=== PATIENT | female | born 1955 | race Caucasian/White ===

== ENCOUNTER → 2017-04-22 | Outpatient (CLI) | payer BC ==
[~2017-04-22] MED LIST: CHOL1TAB46 PO; EPP3/2 IM; IBUP-1050 PO; LEVO150T9 PO
--- NOTE | 2017-04-22 16:37 | DIAGNOSTIC IMAGING REPORT ---
CERVICAL SPINE 6 VIEWS HISTORY: Neuropathy R20.0 Numbness COMPARISON: None. FINDINGS: The cervical spine is visualized from C1 through the superior endplate of T1. There is no fracture. No subluxation. Moderate degenerative disc change from C5 through C7. Prevertebral soft tissues and the atlantodens interval are intact. IMPRESSION: Moderate degenerative disc change from C5 through C7. Minimal osteophytic narrowing of the neuroforamina bilaterally Electronically signed by: Kendrick Castañeda M.D. 04/22/2017 4:35 PM Dictated Date/Time: 04/22/2017 4:35 PM
== END | disposition home or self-care (01) ==
LOC: C.RAD1850 16:15
PROVIDERS: ATTEND Internal Medicine
DX: R20.0 Anesthesia of skin (principal)

== ENCOUNTER → 2017-05-08 | Outpatient (CLI) | payer BC ==
--- NOTE | 2017-05-08 16:11 | DIAGNOSTIC IMAGING REPORT ---
ULTRASOUND SOFT TISSUES OF THE BACK CLINICAL HISTORY: Palpable lump. COMPARISON STUDY: No priors. FINDINGS: Real-time, grayscale, and color flow sonography of the soft tissues of the right lower back is performed at the indicated site of palpable concern. This largely blends into the surrounding subcutaneous fat. There is a well-circumscribed slightly hypoechoic soft tissue nodule at this site. This measures 4.0 x 0.7 x 5.8 cm in diameter. No internal flow shown by color imaging. IMPRESSION: There is a well-circumscribed hypoechoic and nonvascular lesion identified at the indicated site of interest. This is pathologically indeterminant but likely represents a small lipoma. Clinical correlation will be required. Electronically signed by: Jimmy Beck M.D. 05/08/2017 4:10 PM Dictated Date/Time: 05/08/2017 4:08 PM
== END | disposition home or self-care (01) ==
LOC: C.ULTR 15:39
PROVIDERS: ATTEND Internal Medicine
DX: R22.9 Localized swelling, mass and lump, unspecified (principal)

== ENCOUNTER → 2017-10-12 | Outpatient (CLI) | payer BC ==
--- NOTE | 2017-10-13 14:26 | MAMMOGRAPHY REPORT ---
BILATERAL DIGITAL SCREENING MAMMOGRAM TOMOSYNTHESIS WITH CAD: 10/12/2017 CLINICAL HISTORY: Routine screening examination. TECHNIQUE: Breast tomosynthesis in addition to standard 2D mammography was performed. Current study was also evaluated with a Computer Aided Detection (CAD) system. COMPARISON: Comparison is made to exams dated: 10/09/2016 mammogram, 09/06/2015 mammogram, 06/28/2014 mammogram, 06/02/2013 mammogram - [facility], 04/27/2009, and 01/07/2001 mammogram - [facility]. BREAST COMPOSITION: The tissue of both breasts is heterogeneously dense, which may obscure small mas ses. FINDINGS: The parenchymal pattern is unchanged. No developing mass, architectural distortion or clust er of suspicious microcalcifications is seen in either breast. IMPRESSION: ACR BI-RADS CATEGORY 2: BENIGN There is no mammographic evidence of malignancy. A 1 year screening mammogram is recommended. The pa tient will receive written notification of the results. Approximately 10% of breast cancers are not detected with mammography. A negative mammographic report should not delay biopsy if a clinically suggestive mass is present. Kae Merrill M.D. ay/:10/12/2017 15:19:28 Turntable Worker: Yadira CASTELLON(Steven)(Linda), [facility] letter sent: Normal 1/2 BI-RADS Code: ACR BI-RADS Category 2: Benign
== END | disposition home or self-care (01) ==
LOC: C.MAMM 09:47
PROVIDERS: ATTEND Internal Medicine
DX: Z12.31 Encounter for screening mammogram for malignant neoplasm of breast (principal)

== ENCOUNTER 2024-07-26 11:03 | Observation (INO) ==
[2024-07-26 11:51] LABS: Basophils # (auto) 0.02 K/uL (0.00-0.20); Basophils % (auto) 0.4 %; Eosinophils # (auto) 0.08 K/uL (0.00-0.50); Eosinophils % (auto) 1.5 %; Hematocrit (blood only) 41.7 % (37.0-47.0); Hemoglobin 14.7 g/dl (12.0-16.0); Immature Granulocytes # (auto) 0.01 K/uL (0.01-0.20); Immature Granulocytes % (auto) 0.2 %; Lymphocytes # (auto) 1.67 K/uL (1.20-3.40); Lymphocytes % (auto) 31.5 %; Mean Corpuscular Hemoglobin 31.3 pg (25.0-34.0); Mean Corpuscular Hgb Conc 35.3 g/dL (32.0-36.0); Mean Corpuscular Volume 88.7 fL (80.0-100.0); Monocytes # (auto) 0.41 K/uL (0.11-0.59); Monocytes % (auto) 7.7 %; Neutrophils # (auto) 3.11 K/uL (1.40-6.50); Neutrophils % (auto) 58.7 %; Platelet Count 260 K/uL (130-400); RDW Coefficient of Variation 11.9 % (11.5-14.5); RDW Standard Deviation 38.5 fL (36.4-46.3)
[2024-07-26] MEDS: SODIUM CHLORIDE 0.9% 1,000 ML IV SCH (11:53)
[2024-07-26 12:13] LABS: Albumin Globulin Ratio 1.7 (0.9-2); Albumin Level 4.8 gm/dl (3.4-5.0); BUN Creatinine Ratio 17.8 (10-20); Bilirubin,Total 0.7 mg/dl (0.2-1.0); Calcium 10.1 mg/dl (8.6-10.3); Creatinine Clr Calc Pharmacy 58.2 ml/min; Est GFR (African American) 76.1 ml/min; Est GFR (Non-African American) 65.7 ml/min; Globulin 2.9 gm/dl (2.5-4.0); Magnesium 2.2 mg/dl (1.7-2.4); Potassium 3.7 mmol/L (3.5-5.1); Total Protein 7.7 gm/dl (6.0-8.3)
[2024-07-26 12:21] LABS: INR 0.9 (0.9-1.1); Partial Thromboplastin Ratio 0.9; Partial Thromboplastin Time 24 Seconds (21-31); Prothrombin Time 10.3 Seconds (9.0-12.0)
--- NOTE | 2024-07-26 12:29 | Emergency Department Note ---
Impression & Plan Headache, Dysarthria ED Provider Note ED Provider Note NAME: VERONIKA GRAMAJO AGE:69 SEX: Female : 1955 ARRIVES VIA: Private vehicle INFORMANT: Patient ED PROVIDER(s): Carey Villalba DO CHIEF COMPLAINT: Headache, trouble finding words HPI: This is a 69-year-old female who presents emergency department due to concern for headache since Thursday and difficulty with word finding that began on Thursday. Patient states headache initially started as frontal and then became more global. She states it was constant, although did improve a little bit on Thursday and yesterday but this morning had returned and was global again. She states her vision is not as crisp but she denies any overt blurred or double vision. She denies any spots or wavy lines. No prior history of migraines. She states he had a similar episode 5 to 6 years ago but does not recall what she was ultimately diagnosed with. She states at that time she did present to the emergency department, did undergo testing and was treated with medication. She denies any prior history of stroke or mini stroke. She states her family noticed the word finding and became more concerned and as it did not improve they decided today she should come in for additional evaluation. She denies any recent fevers, chills, or URI symptoms. She denies any change in medications. She denies any falls, trauma, or head injury. PAST MEDICAL HISTORY:See Below PAST SURGICAL HISTORY:See Below FAMILY HISTORY:See Below SOCIAL HISTORY:See Below HOME MEDICATIONS:See Below ALLERGIES:See Below VITALS:See Below PHYSICAL EXAMINATION: GENERAL: alert, well appearing, well nourished, no distress, non-toxic HEAD: nc/at EYE EXAM: normal conjunctiva, PERRL and EOM's grossly intact OROPHARYNX: no exudate, no erythema, lips, buccal mucosa, and tongue normal and mucous membranes are moist NECK: supple, no nuchal rigidity, no adenopathy, non-tender LUNGS: Clear to auscultation. Normal chest wall mechanics, no w/r/r HEART: no murmurs, S1 normal and S2 normal ABDOMEN: abdomen soft, non-tender, normo-active bowel sounds, no masses, no rebound or guarding. SKIN: no rashes, petechiae, orbruising UPPER EXTREMITIES: upper extremities are grossly normal. FROM, nml pulses b/l. LOWER EXTREMITIES: No pitting edema. FROM, nml pulses b/l. NEURO EXAM: Normal sensorium, cranial nerves II-XII grossly intact, normal speech, very slight facial droop at left mouth which patient states is chronic,nogross weakness of arms, no gross weakness of legs. Gross sensation intact. No ataxia.NIHSS 1 Vital Signs: reviewed and remarkable Differential Diagnosis: CVA/TIA, headache, tension headache, cluster headache, migraine, subarachnoid hemorrhage, meningitis, mass, central venous thrombus, concussion, trauma and epidural/subdural hemorrhage. MEDICAL DECISION MAKING: This is a 69-year-old female who presents emergency ferment due to concern for atypical headache and difficulty with word finding and speech. Labs drawn and sent, IV established, EKG and chest x-ray performed bedside interpreted me and patient monitored on telemetry. Patient's last known well was several days ago so she was not a candidate for TNK. Patient started on gentle IV fluid hydration, given IV Tylenol for pain, and sent for CT/CTA. Patient's labs and imaging reassuring. She did have persistent symptoms although reported feeling improved. Given no prior history of complex migraine or other obvious explanation for her symptoms, we discussed risk factors for CVA/TIA and need for further evaluation. Patient and family bedside verbalized understanding were in agreement with the plan. Case discussed with the hospitalist team. Consultation(s): 1445: Discussed with RUCHI Moss with [place] hospitalist team. ER Treatment Provided: See below Diagnostics Interpreted By Me: -ECG: Normal sinus at 73, normal axis, normal intervals, slight ST depression noted in lead I, II, and V4 through V6 -Cardiac Monitoring: An order was placed for continuous cardiac monitoring. The monitor shows a rate of 78 with normal sinus rhythm. -Laboratory studies: As stated above and show below. -Imaging studies: CT head: no [facility] Triage Nursing Note Reviewed Prior/Outside Records Reviewed Past Med/Surg History Problem List (Updated 07/27/24 @ 10:07 by Gustavo Santamaria MD) Complicated migraine Word finding difficulty Dysarthria (Acute) Headache (Acute) EKG, abnormal Left arm numbness Routine gynecological examination Cervical disc disease Health care maintenance Hypothyroidism, postablative (Acute) Personal history of urinary calculi (Acute) Rectocele (Acute) Spondylosis of cervical region without myelopathy or radiculopathy (Acute) Vitamin D deficiency disease (Acute) Hemorrhoids History of bee sting allergy (Chronic) Medical History (Updated 07/27/24 @ 10:07 by Gustavo Santamaria MD) Numbness of upper extremity Left hip pain Asymptomatic age-related postmenopausal state Abdominal pain SOBOE (shortness of breath on exertion) COVID-19 Bloating Benign neoplasm of thyroid Bee sting Allergic reaction Allergic reaction Surgical History Status post thyroidectomy History of thyroidectomy, total H/O oral surgery History of appendectomy Family History Unknown Breast cancer Heart disease Father Myocardial infarction Daughter Colorectal cancer Denies family history of Ovarian cancer Prostate cancer Social History Smoking Status: Never smoker Second Hand Exposure: No; Do You Dip or Chew Tobacco: No; Hx Alcohol Use: Yes Alcohol type: wine Alcohol Intake Frequency Comment: socially Hx Substance Use: No Preferred Language: Slovak Communication Ability: Effective Visual Impairment: No Limitations Hearing Ability: Normal Hot Die Picker Required: No Beliefs That Will Affect Care: None marital status: Current Living Situation: Spouse current occupational status: employed How many Children do You have: 2 Feels Safe at Home: Yes Childhood Exposure to Second-Hand Smoke: Yes Diet: low carbohydrate, low salt and regular caffeine: Yes Dental Care, Regularly: Yes Physical Activity Frequency: Daily Seatbelt Use: always Sunscreen Use: Yes Assistive Devices: Glasses Allergies Allergies Allergy/AdvReac Type Severity Reaction Status Date / Time bee venom protein (honey bee) Allergy Unknown HIVES, Verified 04/22/24 08:57 "funny feeling in throat Penicillins Allergy Unknown Verified 04/22/24 08:57 Home Meds Home Medications Medication Instructions Recorded Confirmed diclofenac sodium 1 % topical gel 2 gm topical BID PRN lliac crest 08/01/19 07/26/24 bone pain, Left Knee Pain cholecalciferol (vitamin D3) 125 2,000 unit PO DAILY #30 caps 04/26/24 07/26/24 mcg (5,000 unit) capsule Vitamin B 1 tab PO DAILY 07/26/24 07/26/24 valacyclovir 1 gram tablet 2,000 mg PO BID PRN Other 07/26/24 07/26/24 (Valtrex) Previous Rx's Medication Instructions Recorded hydrocortisone 2.5 % topical cream 1 appln IN DAILY PRN hemorrhoids 05/20/19 with perineal applicator #30 grams (Anusol-HC) albuterol sulfate 90 mcg/actuation 1 inh inhalation QID PRN shortness 10/30/21 aerosol inhaler of breath or wheezing #8.5 grams epinephrine 0.3 mg/0.3 mL 0.3 mg (0.3 mL) subcut ONCE PRN 02/05/23 injection, auto-injector anaphylaxis #2 ea Synthroid 175 mcg tablet 175 mcg PO DAILY #90 tabs 04/27/24 (levothyroxine) prednisone 20 mg tablet See Rx Instructions .Route 07/27/24 .COMPLEX #9 tabs Results & Data (ED) Vital Signs Vital Signs - 24 hr 07/26/24 11:18 07/26/24 11:39 07/26/24 12:47 Temperature 36.8 C Temperature Source Temporal Artery Scan Pulse Rate 78 66 Pulse Rate [Apical] 74 Respiratory Rate 20 14 Respiratory Effort / Characteristics Non-Labored Respiratory Depth Normal Blood Pressure 160/96 H Blood Pressure [Left Arm] 168/104 H Blood Pressure Mean 117 Blood Pressure Mean [Left Arm] 125 Pulse Oximetry 97 97 Oxygen Delivery Method Room Air Room Air Sepsis Recent Fever Within 48 Hours No Sepsis New/Unexplained Change in Mental Status No Sepsis Action Taken by Nursing No Action Required 07/26/24 13:00 07/26/24 15:00 Temperature Temperature Source Pulse Rate Pulse Rate [Apical] 61 67 Respiratory Rate 19 18 Respiratory Effort / Characteristics Respiratory Depth Blood Pressure Blood Pressure [Left Arm] 158/101 H 136/83 Blood Pressure Mean Blood Pressure Mean [Left Arm] 120 100 Pulse Oximetry 99 98 Oxygen Delivery Method Room Air Room Air Sepsis Recent Fever Within 48 Hours Sepsis New/Unexplained Change in Mental Status Sepsis Action Taken by Nursing Laboratory Data 07/27/24 05:52 07/27/24 05:52 Lab Results 07/26/24 07/26/24 Range/Units 11:36 13:35 WBC 5.30 (4.8-10.8) K/ul RBC 4.70 (4.20-5.40) M/uL Hgb 14.7 (12.0-16.0) g/dl Hct 41.7 (37.0-47.0) % MCV 88.7 (80.0-100.0) fL MCH 31.3 (25.0-34.0) pg MCHC 35.3 (32.0-36.0) g/dL RDW Std Deviation 38.5 (36.4-46.3) fL RDW Coeff of Ani 11.9 (11.5-14.5) % Plt Count 260 (130-400) K/uL MPV 11.0 (9.4-12.4) fL Immature Gran % (Auto) 0.2 % Neut % (Auto) 58.7 % Lymph % (Auto) 31.5 % [place] % (Auto) 7.7 % Eos % (Auto) 1.5 % Baso % (Auto) 0.4 % Neut # (Auto) 3.11 (1.40-6.50) K/uL Lymph # (Auto) 1.67 (1.20-3.40) K/uL [place] # (Auto) 0.41 (0.11-0.59) K/uL Eos # (Auto) 0.08 (0.00-0.50) K/uL Baso # (Auto) 0.02 (0.00-0.20) K/uL Immature Gran # (Auto) 0.01 (0.01-0.20) K/uL PT 10.3 (9.0-12.0) Seconds INR 0.9 (0.9-1.1) APTT 24 (21-31) Seconds PTT Ratio 0.9 Sodium 142 (136-145) mmol/L Potassium 3.7 (3.5-5.1) mmol/L Chloride 108 H (98-107) mmol/L Carbon Dioxide 28 (21-32) mmol/L Anion Gap 6 (3-11) BUN 16 (6-23) mg/dl Creatinine 0.90 (0.6-1.2) mg/dl Est Cr Clr Drug Dosing 58.2 ml/min Est GFR ( Amer) 76.1 ml/min Est GFR (Non-Af Amer) 65.7 ml/min BUN/Creatinine Ratio 17.8 (10-20) Glucose 124 H (70-99(Fasting)) mg/dl Calcium 10.1 (8.6-10.3) mg/dl Magnesium 2.2 (1.7-2.4) mg/dl Total Bilirubin 0.7 (0.2-1.0) mg/dl AST 40 H (13-39) U/L ALT 22 (7-52) U/L Alkaline Phosphatase 55 (34-104) U/L Troponin I High Sens 12.0 (0-14) pg/ml Total Protein 7.7 (6.0-8.3) gm/dl Albumin 4.8 (3.4-5.0) gm/dl Globulin 2.9 (2.5-4.0) gm/dl Albumin/Globulin Ratio 1.7 (0.9-2) Urine Color Yellow Urine Appearance Clear (Clear) Urine pH 7.5 (4.5-7.5) Ur Specific [place] 1.025 (1.000-1.030) Urine Protein Negative (Negative) Urine Glucose (UA) Negative (Negative) Urine Ketones Negative (Negative) Urine Blood Negative (Negative) Urine Nitrite Negative (Negative) Urine Bilirubin Negative (Negative) Urine Urobilinogen Negative (Negative) Ur Leukocyte Esterase Negative (Negative) Administered Medications Discontinued Medications Acetaminophen (Acetaminophen 325 Mg Tab) 650 mg PO Q6H PRN PRN Reason: pain(1-4),headache,fever Stop: 08/25/24 18:59 Last Admin: 07/27/24 05:56 Dose: 650 mg Documented By: SERG Aspirin (Aspirin Chew 324 Mg) 324 mg PO NOW STA Stop: 07/26/24 15:11 Last Admin: 07/26/24 15:54 Dose: 324 mg Documented By: PARIS Aspirin (Aspirin 81 Mg Ectab) 81 mg PO DAILY [facility] Stop: 08/26/24 08:59 Last Admin: 07/27/24 09:05 Dose: 81 mg Documented By: LAUREN Sodium Chloride (Nss) 1,000 mls @ 125 mls/hr IV .Q8H MARILIA Stop: 08/25/24 11:44 Last Infusion: 07/27/24 15:03 Dose: Infused Documented By: Admin: 07/27/24 07:03 Dose: 125 mls/hr Documented By: Infusion: 07/27/24 06:51 Dose: Infused Documented By: Admin: 07/26/24 22:51 Dose: 125 mls/hr Documented By: Infusion: 07/26/24 19:53 Dose: Infused Documented By: Admin: 07/26/24 11:53 Dose: 125 mls/hr Documented By: PARIS Acetaminophen (Ofirmev) 1,000 mg in 100 mls @ 400 mls/hr IV NOW STA Stop: 07/26/24 14:37 Last Infusion: 07/26/24 15:10 Dose: Infused Documented By: Admin: 07/26/24 14:54 Dose: 400 mls/hr Documented By: PARIS Ioversol (Optiray 320 125ml) 118 ml IV ONCE ONE Stop: 07/26/24 12:47 Last Admin: 07/26/24 12:46 Dose: 118 ml Documented By: ISSA Levothyroxine Sodium (Levothyroxine Sodium 175 Mcg Tablet) 175 mcg PO DAILYBB MARILIA Stop: 08/26/24 06:29 Last Admin: 07/27/24 05:56 Dose: 175 mcg Documented By: SERG Prednisone (Prednisone 20 Mg Tab) 60 mg PO NOW STA Stop: 07/27/24 11:39 Last Admin: 07/27/24 13:21 Dose: 60 mg Documented By: LAUREN Imaging Data Radiologist's Impression: Chest X-Ray 07/26/24 11:39 XR chest 1V portable HISTORY: neuro deficit, acute stroke suspected COMPARISON: Chest 12/26/2011. FINDINGS: No pneumothorax. No pleural effusions. Small left basilar linear densities persist and favor scarring. Otherwise, lungs are clear. The heart is normal in size. Incidental note is made of a small right azygos lobe. No acute fractures. IMPRESSION: No significant change compared to the prior study. No acute process. ACT 112: Negative or not required by law. Electronically signed by: Jude Wyman M.D. 07/26/2024 1:[address] 07/26/24 11:39 CT OF THE HEAD WITHOUT CONTRAST CLINICAL HISTORY: neuro deficit, acute stroke suspected COMPARISON STUDY: Head CT March 17, 2013. TECHNIQUE: Helical axial images of the head were obtained without IV contrast. Automated exposure control was utilized for the study. A dose lowering technique was utilized adhering to the principles of ALARA. FINDINGS: No acute intracranial hemorrhage, midline shift or mass effect is present. The ventricular system is unremarkable. The basal cisterns are patent. No extra-axial collections are present. There are no findings to suggest acute dural sinus thrombosis or acute territorial infarct. No significant calvarial abnormalities are present. Visualized portions of the sinuses and mastoid air cells are clear. IMPRESSION: No acute intracranial findings. ACT 112: Negative or not required by law. Electronically signed by: Filiberto Ovalles M.D. 07/26/2024 12:59 PM Head CTA 07/26/24 11:39 CT angio head w con, CT angio neck with con CLINICAL HISTORY: 69 years-old Female with neuro deficit, acute stroke suspected. Acute stroke like symptoms COMPARISON STUDY: Head CT of same day TECHNIQUE: Following the IV administration of 118 cc of Optiray, CT angiogram of the head and neck was performed from. The images are reviewed in the axial, sagittal, and coronal planes. 3-D MIPS images are created and assessed. IV contrast was administered without complication. All measurements were obtained according to NASCET criteria. A dose lowering technique was utilized adhering to the principles of ALARA. CT DOSE: 1147.78 mGy.cm FINDINGS: CT ANGIOGRAM OF THE HEAD AND NECK: Normal thoracic aorta arch. Patency of the common and internal carotid arteries. The imaged bilateral internal carotid arteries are patent. The bilateral anterior and middle cerebral arteries are also patent. The vertebrobasilar system and posterior cerebral arteries are widely patent. There is no aneurysm, high-grade stenosis, or proximal branch occlusion identified. Dural sinuses appear patent. Azygos lobe and fissure. Lung apices are clear. No pneumothorax. Thyroidectomy. Unremarkable soft tissues. Multilevel degenerative changes of the cervical spine. IMPRESSION: Unremarkable CTA of the head and neck. ACT 112: Negative or not required by law. The above report was generated using voice recognition software. It may contain grammatical, syntax or spelling errors. Electronically signed by: Sarabjit Otero M.D. 07/26/2024 1:41 PM Neck CTA 07/26/24 11:39 CT angio head w con, CT angio neck with con CLINICAL HISTORY: 69 years-old Female with neuro deficit, acute stroke suspected. Acute stroke like symptoms COMPARISON STUDY: Head CT of same day TECHNIQUE: Following the IV administration of 118 cc of Optiray, CT angiogram of the head and neck was performed from. The images are reviewed in the axial, sagittal, and coronal planes. 3-D MIPS images are created and assessed. IV contrast was administered without complication. All measurements were obtained according to NASCET criteria. A dose lowering technique was utilized adhering to the principles of ALARA. CT DOSE: 1147.78 mGy.cm FINDINGS: CT ANGIOGRAM OF THE HEAD AND NECK: Normal thoracic aorta arch. Patency of the common and internal carotid arteries. The imaged bilateral internal carotid arteries are patent. The bilateral anterior and middle cerebral arteries are also patent. The vertebrobasilar system and posterior cerebral arteries are widely patent. There is no aneurysm, high-grade stenosis, or proximal branch occlusion identified. Dural sinuses appear patent. Azygos lobe and fissure. Lung apices are clear. No pneumothorax. Thyroidectomy. Unremarkable soft tissues. Multilevel degenerative changes of the cervical spine. IMPRESSION: Unremarkable CTA of the head and neck. ACT 112: Negative or not required by law. The above report was generated using voice recognition software. It may contain grammatical, syntax or spelling errors. Electronically signed by: Sarabjit Otero M.D. 07/26/2024 1:41 PM Discharge Plan Visit Data Chief Complaint: Headache Stated Complaint: HEADACHE, CONFUSION W/ WORDS ED Provider: Carey Villalba Discharge Problem: Headache, Dysarthria Patient Disposition: Admitted As Inpatient Discharge Instructions Interventions: ED Discharge Assessment Last Done: 07/26/24 16:17
[2024-07-26] MEDS: OPTIRAY 320 125ml IV ONE (12:46)
--- NOTE | 2024-07-26 13:00 | CT Scan Report ---
CT OF THE HEAD WITHOUT CONTRAST CLINICAL HISTORY: neuro deficit, acute stroke suspected COMPARISON STUDY: Head CT March 17, 2013. TECHNIQUE: Helical axial images of the head were obtained without IV contrast. Automated exposure con trol was utilized for the study. A dose lowering technique was utilized adhering to the principles o f ALARA. FINDINGS: No acute intracranial hemorrhage, midline shift or mass effect is present. The ventricular system is unremarkable. The basal cisterns are patent. No extra-axial collections are present. There are no findings to suggest acute dural sinus thrombosis or acute territorial infarct. No significant calvarial abnormalities are present. Visualized portions of the sinuses and mastoid air cells are cata ar. IMPRESSION: No acute intracranial findings. ACT 112: Negative or not required by law. Electronically signed by: Filiberto Ovalles M.D. 07/26/2024 12:59 PM
--- NOTE | 2024-07-26 13:24 | XRay Report ---
XR chest 1V portable HISTORY: neuro deficit, acute stroke suspected COMPARISON: Chest 12/26/2011. FINDINGS: No pneumothorax. No pleural effusions. Small left basilar linear densities persist and favo r scarring. Otherwise, lungs are clear. The heart is normal in size. Incidental note is made of a sma ll right azygos lobe. No acute fractures. IMPRESSION: No significant change compared to the prior study. No acute process. ACT 112: Negative or not required by law. Electronically signed by: Jude Wyman M.D. 07/26/2024 1:23 PM
--- NOTE | 2024-07-26 13:43 | CT Scan Report ---
CT angio head w con, CT angio neck with con CLINICAL HISTORY: 69 years-old Female with neuro deficit, acute stroke suspected. Acute stroke lik e symptoms COMPARISON STUDY: Head CT of same day TECHNIQUE: Following the IV administration of 118 cc of Optiray, CT angiogram of the head and neck wa s performed from. The images are reviewed in the axial, sagittal, and coronal planes. 3-D MIPS images are created and assessed. IV contrast was administered without complication. All measurements were o btained according to NASCET criteria. A dose lowering technique was utilized adhering to the principl es of DAGO. CT DOSE: 1147.78 mGy.cm FINDINGS: CT ANGIOGRAM OF THE HEAD AND NECK: Normal thoracic aorta arch. Patency of the common and internal carotid arteries. The imaged bilateral internal carotid arteries are patent. The bilateral anterior and middle cerebral arteries are also p atent. The vertebrobasilar system and posterior cerebral arteries are widely patent. There is no aneu rysm, high-grade stenosis, or proximal branch occlusion identified. Dural sinuses appear patent. Azygos lobe and fissure. Lung apices are clear. No pneumothorax. Thyroidectomy. Unremarkable soft tis sues. Multilevel degenerative changes of the cervical spine. IMPRESSION: Unremarkable CTA of the head and neck. ACT 112: Negative or not required by law. The above report was generated using voice recognition software. It may contain grammatical, syntax o r spelling errors. Electronically signed by: Sarabjit Otero M.D. 07/26/2024 1:41 PM
[2024-07-26 13:50] LABS: Appearance Urine Clear (Clear); Bilirubin Urine Negative (Negative); Blood Urine Negative (Negative); Color Urine Yellow; Glucose Urine UA Negative (Negative); Ketones Urine Negative (Negative); Leukocyte Esterase Urine Negative (Negative); Nitrite Urine Negative (Negative); Protein Urine Negative (Negative); Specific Gravity Urine 1.025 (1.000-1.030); Urobilinogen Urine Negative (Negative); pH Urine 7.5 (4.5-7.5)
--- NOTE | 2024-07-26 14:49 | History & Physical Report ---
Date of Service July 26, 2024 Assessment & Plan (1) Word finding difficulty: Plan: Admit to med telemetry Currently stable nontoxic-appearing Presented to the ED with approximately 4 days of intermittent word finding difficulty with associated frontal headache Patient's neurologic exam currently nonfocal, no signs of infection, meningitis, encephalitis CT of the head and brain without contrast and CTA of the head and neck were read as unremarkable History and exam most consistent with possible TIA/CVA at this time Obtain MRI of the brain without contrast for further evaluation If MRI of the brain without contrast is positive for CVA will obtain TTE Will give 324 mg aspirin now and plan to continue with 81 mg daily tomorrow Follow hemoglobin A1c and fasting lipid panel tomorrow Every 4 neurochecks Bilateral SCDs for DVT prophylaxis Will allow permissive hypertension until MRI results are back Heart healthy diet AM CBC, BMP, mag, PT/INR (2) Headache: Plan: Patient has been experiencing intermittent frontal headache since 07/22/2024 Denies a previous history of migraines or recurrent headaches Will monitor for improvement with 1 g IV Tylenol at time of admission and will follow-up MRI of the brain without contrast No signs of photophobia, nausea/vomiting to suggest migraine No signs of meningitis or encephalitis at this time MRI of the brain without contrast negative for CVA we will try NSAIDs monitor for improvement (3) Hypothyroidism, postablative: Plan: Continue levothyroxine Plan Patient was discussed with Dr. Mckeon at time of the admission History of Present Illness Chief Complaint: Word finding difficulty, headache Primary Care Provider: Jose L Mendosa MD Lien is a 61-year-old female with a past medical history significant for papillary thyroid cancer status post total thyroidectomy and 2001, dizziness who presented to [facility] ED on 07/26/2024 due to dysarthria, confusion, and headache which initially started on 07/24/2024. Patient was noted to be hypertensive on arrival with systolic blood pressure 160s but was otherwise stable. Labs including CBC, CMP, and UA were unremarkable. Chest x- ray, CT of the head and brain without contrast, and CTA of the head/neck were read as unremarkable. Prior to admission the patient was given 1 L normal saline and was ordered 1 g IV Tylenol. Patient was sitting in bed in no acute distress at the time of exam with her sitting bedside, history is obtained from both. They explained that the patient started to develop a frontal headache on 07/22/24. States that over the weekend the patient started to develop difficulty with word finding and getting the correct words out which her and friends noticed. Her states that these issues were mild but became more severe on 07/25/2024 with associated confusion. When asked, the patient confirms that she was aware that she was having difficulty getting her words out and states that she could not think of the correct words or speak correctly. No recent fever, chills, paresthesias, unilateral weakness, changes in vision, hearing, taste, smell, chest pain, shortness of breath, cough, abdominal pain, nausea/vomiting, dysuria/hematuria, melena, lower extremity swelling, recent insect bites or rash, and recent trauma. Patient states that her headache is currently a 5 out of 10, she and her feel as though her word finding difficulty has significantly improved but patient states that she still is experiencing the symptoms intermittently since arrival. Denies a previous history of stroke. When asked if she has ever experienced symptoms like this in the past they explained that approximately 10 years ago she experienced an ongoing headache while in [place] and was diagnosed with viral meningitis. They state that she was treated with steroids and significantly improved. When asked if this headache feels similar she states that it does not and when asked if she had similar word finding difficulties with her history of meningitis she states that she does not. Den ies new neck pain/stiffness. Has been using Tylenol and ibuprofen at home for her headache. Is a full code and would want her to make medical decisions for her if she cannot make them herself. Please refer to Dr. Mckeon's attestation for any changes to the treatment plan Allergies Allergy/AdvReac Type Severity Reaction Status Date / Time bee venom protein (honey bee) Allergy Unknown HIVES, Verified 04/22/24 08:57 "funny feeling in throat Penicillins Allergy Unknown Verified 04/22/24 08:57 Home Medications Medication Instructions Recorded Confirmed Type hydrocortisone 2.5 % topical cream 1 appln WI DAILY PRN hemorrhoids 05/20/19 07/26/24 Rx with perineal applicator #30 grams (Anusol-HC) diclofenac sodium 1 % topical gel 2 gm topical BID PRN lliac crest 08/01/19 07/26/24 History bone pain, Left Knee Pain albuterol sulfate 90 mcg/actuation 1 inh inhalation QID PRN shortness 10/30/21 07/26/24 Rx aerosol inhaler of breath or wheezing #8.5 grams epinephrine 0.3 mg/0.3 mL 0.3 mg (0.3 mL) subcut ONCE PRN 02/05/23 07/26/24 Rx injection, auto-injector anaphylaxis #2 ea cholecalciferol (vitamin D3) 125 2,000 unit PO DAILY #30 caps 04/26/24 07/26/24 History mcg (5,000 unit) capsule Synthroid 175 mcg tablet 175 mcg PO DAILY #90 tabs 04/27/24 07/26/24 Rx (levothyroxine) Vitamin B 1 tab PO DAILY 07/26/24 07/26/24 History valacyclovir 1 gram tablet 2,000 mg PO BID PRN Other 07/26/24 07/26/24 History (Valtrex) Past Med/Surg History Problem List (Updated 07/26/24 @ 15:26 by Ajay Kaplan PA-C) Word finding difficulty Dysarthria (Acute) Headache (Acute) EKG, abnormal Left arm numbness Routine gynecological examination Cervical disc disease Health care maintenance Hypothyroidism, postablative (Acute) Personal history of urinary calculi (Acute) Rectocele (Acute) Spondylosis of cervical region without myelopathy or radiculopathy (Acute) Vitamin D deficiency disease (Acute) Hemorrhoids History of bee sting allergy (Chronic) Medical History (Updated 07/26/24 @ 15:26 by Ajay Kaplan PA-C) Numbness of upper extremity Left hip pain Asymptomatic age-related postmenopausal state Abdominal pain SOBOE (shortness of breath on exertion) COVID-19 Bloating Benign neoplasm of thyroid Bee sting Allergic reaction Allergic reaction Surgical History Status post thyroidectomy History of thyroidectomy, total H/O oral surgery History of appendectomy Family History Unknown Breast cancer Heart disease Father Myocardial infarction Daughter Colorectal cancer Denies family history of Ovarian cancer Prostate cancer Social History Smoking Status: Never smoker Second Hand Exposure: No; Do You Dip or Chew Tobacco: No; Hx Alcohol Use: Yes Alcohol type: wine Alcohol Intake Frequency Comment: socially Hx Substance Use: No Preferred Language: Malaysian Communication Ability: Effective Visual Impairment: No Limitations Hearing Ability: Normal 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 Beliefs That Will Affect Care: None marital status: Current Living Situation: Spouse current occupational status: employed How many Children do You have: 2 Other Information That Helps Us Care for You: No Feels Safe at Home: Yes Safety Concerns: Feels Safe At This Time Childhood Exposure to Second-Hand Smoke: Yes Diet: low carbohydrate, low salt and regular caffeine: Yes Dental Care, Regularly: Yes Physical Activity Frequency: Daily Seatbelt Use: always Sunscreen Use: Yes Assistive Devices: None Physical Exam Physical Exam: Physical Exam: General: In no acute distress, stated age, well-nourished, good hygiene HEENT: Normocephalic, atraumatic, no scleral icterus, pupils around round, symmetrical, and reactive to light, moist mucus membranes, trachea midline, no thyromegaly Chest/Pulm: No respiratory distress, symmetrical chest expansion, clear breath sounds throughout Cardiac: RRR, no murmurs noted Abdomen: Negative for ascites and bruising, normoactive bowel sounds, soft, non-tender to palpation throughout Musculoskeletal: Symmetrical and without signs of acute trauma, upper and lower extremities with full ROM, no atrophy, spasticity, or flaccidity Extremities: Radial, dorsalis pedis, and posterior tibial pulses are intact and symmetrical, no edema noted in the BL LE's Skin: Warm, dry, no rashes , lesions, or scars noted Neuro: Alert and oriented to person, place, month, year, and president, no focal defects, CN II-XII tested and intact, negative cerebellar and pronator drift in the bilateral upper extremities, symmetrical 5+ strength in the bilateral upper and lower extremities, no tremors noted Psych: No acute distress, calm and cooperative during the exam Results & Data Results & Data Vital Signs (Past 12 Hours) Vital Signs Temp Pulse Pulse Resp BP BP Pulse Ox 07/26/24 13:00 61 19 158/101 H 99 07/26/24 12:47 66 07/26/24 11:39 74 14 168/104 H 97 07/26/24 11:18 36.8 C 78 20 160/96 H 97 O2 Del Method 07/26/24 13:00 Room Air 07/26/24 12:47 07/26/24 11:39 Room Air 07/26/24 11:18 Room Air Laboratory Results Abnormal lab results 07/26/24 Range/Units 11:36 Chloride 108 H (98-107) mmol/L Glucose 124 H (70-99(Fasting)) mg/dl AST 40 H (13-39) U/L Diagnostic Findings Chest X-Ray 07/26/24 11:39 XR chest 1V portable HISTORY: neuro deficit, acute stroke suspected COMPARISON: Chest 12/26/2011. FINDINGS: No pneumothorax. No pleural effusions. Small left basilar linear densities persist and favor scarring. Otherwise, lungs are clear. The heart is normal in size. Incidental note is made of a small right azygos lobe. No acute fractures. IMPRESSION: No significant change compared to the prior study. No acute process. ACT 112: Negative or not required by law. Electronically signed by: Jude Wyman M.D. 07/26/2024 1:[address] 07/26/24 11:39 CT OF THE HEAD WITHOUT CONTRAST CLINICAL HISTORY: neuro deficit, acute stroke suspected COMPARISON STUDY: Head CT March 17, 2013. TECHNIQUE: Helical axial images of the head were obtained without IV contrast. Automated exposure control was utilized for the study. A dose lowering technique was utilized adhering to the principles of ALARA. FINDINGS: No acute intracranial hemorrhage, midline shift or mass effect is present. The ventricular system is unremarkable. The basal cisterns are patent. No extra-axial collections are present. There are no findings to suggest acute dural sinus thrombosis or acute territorial infarct. No significant calvarial abnormalities are present. Visualized portions of the sinuses and mastoid air cells are clear. IMPRESSION: No acute intracranial findings. ACT 112: Negative or not required by law. Electronically signed by: Filiberto Ovalles M.D. 07/26/2024 12:59 PM Head CTA 07/26/24 11:39 CT angio head w con, CT angio neck with con CLINICAL HISTORY: 69 years-old Female with neuro deficit, acute stroke suspected. Acute stroke like symptoms COMPARISON STUDY: Head CT of same day TECHNIQUE: Following the IV administration of 118 cc of Optiray, CT angiogram of the head and neck was performed from. The images are reviewed in the axial, sagittal, and coronal planes. 3-D MIPS images are created and assessed. IV contrast was administered without complication. All measurements were obtained according to NASCET criteria. A dose lowering technique was utilized adhering to the principles of ALARA. CT DOSE: 1147.78 mGy.cm FINDINGS: CT ANGIOGRAM OF THE HEAD AND NECK: Normal thoracic aorta arch. Patency of the common and internal carotid arteries. The imaged bilateral internal carotid arteries are patent. The bilateral anterior and middle cerebral arteries are also patent. The vertebrobasilar system and posterior cerebral arteries are widely patent. There is no aneurysm, high-grade stenosis, or proximal branch occlusion identified. Dural sinuses ap pear patent. Azygos lobe and fissure. Lung apices are clear. No pneumothorax. Thyroidectomy. Unremarkable soft tissues. Multilevel degenerative changes of the cervical spine. IMPRESSION: Unremarkable CTA of the head and neck. ACT 112: Negative or not required by law. The above report was generated using voice recognition software. It may contain grammatical, syntax or spelling errors. Electronically signed by: Sarabjit Otero M.D. 07/26/2024 1:41 PM Neck CTA 07/26/24 11:39 CT angio head w con, CT angio neck with con CLINICAL HISTORY: 69 years-old Female with neuro deficit, acute stroke suspected. Acute stroke like symptoms COMPARISON STUDY: Head CT of same day TECHNIQUE: Following the IV administration of 118 cc of Optiray, CT angiogram of the head and neck was performed from. The images are reviewed in the axial, sagittal, and coronal planes. 3-D MIPS images are created and assessed. IV contrast was administered without complication. All measurements were obtained according to NASCET criteria. A dose lowering technique was utilized adhering to the principles of ALARA. CT DOSE: 1147.78 mGy.cm FINDINGS: CT ANGIOGRAM OF THE HEAD AND NECK: Normal thoracic aorta arch. Patency of the common and internal carotid arteries. The imaged bilateral internal carotid arteries are patent. The bilateral anterior and middle cerebral arteries are also patent. The vertebrobasilar system and posterior cerebral arteries are widely patent. There is no aneurysm, high-grade stenosis, or proximal branch occlusion identified. Dural sinuses appear patent. Azygos lobe and fissure. Lung apices are clear. No pneumothorax. Thyroidectomy. Unremarkable soft tissues. Multilevel degenerative changes of the cervical spine. IMPRESSION: Unremarkable CTA of the head and neck. ACT 112: Negative or not required by law. The above report was generated using voice recognition software. It may contain grammatical, syntax or spelling errors. Electronically signed by: Sarabjit Otero M.D. 07/26/2024 1:41 PM ECG Additional Comments: Normal sinus rhythm with mild T wave depression in the anterolateral leads Code Status & VTE Plan Code Status Full code VTE Prophylaxis Plan VTE Prophylaxis will be ordered: Yes Supervising Physician Co-Signing Physician Notes Patient seen and examined, chart reviewed, case discussed with Ajay Kaplan PA-C and I agree with the assessment and plan as above except as otherwise noted Labs and images reviewed 69-year-old female with a history of papillary thyroid cancer who presents with confusion and word finding difficulty. Does not have dysarthria and no receptive aphasia, had some trouble with word finding and expressive aphasia. Subsequently with a headache. DDx includes CVA, complex migraine. Commended for admission for completion of stroke eval. CThead and CTA unremarkable. MRI without acute findings. Seen at the bedside in the evening on reassessment. Headache is improved although not completely resolved. Word finding difficulties improved. She feels much better but not quite 100%. She is concerned about being in [place] with multiple skin mosquito bites whether she could have West Nile or Zika. As she has no focal deficits, no strength or sensory deficits, no meningeal signs, and otherwise feels well risk outweighs the benefit of lumbar puncture. Patient agreeable to symptomatic care at this time, and ongoing reassessment. Received full dose aspirin. No focal strength or sensory deficits. Agree with above. PG Care Time/CCT Total # of Minutes Spent Total Time Spent with Patient: Total time spent is greater than 50% in coordination of care (as documented) at patient's floor/unit and/or counseling patient: Coding [place] [address] INT INP/OBS CARE 3/75MIN Patient Type Established Medical Decision Making High Complexity Diagnoses Word finding difficulty R47.89 Headache R51.9 Hypothyroidism, postablative E89.0
[2024-07-26] MEDS: ACETAMINOPHEN 1,000 MG/100 ML VIAL IV STA (14:54)
[2024-07-26] MEDS ORDERED: PHARMACIST DISCHARGE MED REC CONSULT PRN (15:09)
[2024-07-26] MEDS: ASPIRIN CHEW 324 MG PO STA (15:54)
--- NOTE | 2024-07-26 15:58 | Electrocardiogram Report ---
Test Reason : Blood Pressure : */* mmHG Vent. Rate : 73 BPM Atrial Rate : 73 BPM P-R Int : 160 ms QRS Dur : 90 ms QT Int : 394 ms P-R-T Axes : 34 -5 -4 degrees QTcB Int : 434 ms Normal sinus rhythm Diffuse Nonspecific ST abnormality Poor R wave progression, consider anterior IA vs. lead placement vs. LVH Abnormal ECG When compared with ECG of 22-May-2014 11:48, PRWP now present Confirmed by Tomy Thacker ([id number]) on 07/26/2024 3:58:07 PM Referred By: REFERRED SELF Confirmed By: Tomy Thacker
[2024-07-26] MEDS ORDERED: ALBUTEROL HFA 8 GM INHALER INH PRN (17:14)
--- NOTE | 2024-07-26 17:32 | Magnetic Resonance Report ---
MRI OF THE BRAIN WITHOUT CONTRAST CLINICAL HISTORY: stroke workup COMPARISON STUDY: Head CT and CTA of the head performed earlier today. TECHNIQUE: Utilizing a 1.5 Aylin magnet and dedicated coil, multiplanar, multiecho imaging of the bra in was performed without IV contrast. FINDINGS: There are no foci of restricted effusion to suggest acute infarct. No acute intracranial he morrhage, midline shift or mass effect is present. Ventricular system is unremarkable. Basal cisterns are patent. Flow-voids for the major intracranial vessels are present. No intracranial mass is ident ified on unenhanced exam. There is minimal small vessel disease. Calvarial signal is normal. There is no evidence for sinusitis. There is no mastoid fluid. IMPRESSION: No acute intracranial findings. ACT 112: Negative or not required by law. Electronically signed by: Filiberto Ovalles M.D. 07/26/2024 5:30 PM
[2024-07-26] MEDS ORDERED: Nursing to Pharmacy Communication SCH (23:15)
[2024-07-27 03:11] VITALS: RESP 16
[2024-07-27] MEDS: ACETAMINOPHEN 325 MG TAB PO PRN (05:56)
[2024-07-27] MEDS: LEVOTHYROXINE SODIUM 175 MCG TABLET PO SCH (05:56)
[2024-07-27 06:16] LABS: Hematocrit (blood only) 37.3 % (37.0-47.0); Hemoglobin 12.9 g/dl (12.0-16.0); Mean Corpuscular Hemoglobin 30.7 pg (25.0-34.0); Mean Corpuscular Hgb Conc 34.6 g/dL (32.0-36.0); Mean Corpuscular Volume 88.8 fL (80.0-100.0); Mean Platelet Volume 10.9 fL (9.4-12.4); Platelet Count 223 K/uL (130-400); RDW Coefficient of Variation 11.9 % (11.5-14.5); RDW Standard Deviation 38.4 fL (36.4-46.3); White Blood Count 6.15 K/ul (4.8-10.8)
[2024-07-27 06:39] LABS: BUN Creatinine Ratio 20.5 (10-20); Calcium 8.9 mg/dl (8.6-10.3); Chol HDL Ratio 2.5 (0-5); Creatinine Clr Calc Pharmacy 74.7 ml/min; Est GFR (African American) 90.5 ml/min; Est GFR (Non-African American) 78.1 ml/min; Potassium 3.8 mmol/L (3.5-5.1)
[2024-07-27 06:42] LABS: Prothrombin Time 10.5 Seconds (9.0-12.0)
[2024-07-27 07:45] LABS: Estimated Average Glucose 111 mg/dl; Hemoglobin A1C 5.5 % (4.5-5.6)
[2024-07-27] MEDS: ASPIRIN 81 MG ECTAB PO SCH (09:05)
--- NOTE | 2024-07-27 10:07 | Neurology Consultation ---
Date of Consultation July 27, 2024 Assessment & Plan (1) Complicated migraine: History of Present Illness Attending Physician: Lukas Pearce History of Present Illness pt this morning feeling well. just mild frontal headache. speech much improved and essentially back to baseline. mri brain negative. pt apparently had similar event 10 yrs ago with headache and speech problem and she received po steroid and her symptoms resolved in 2 days and did well. chart reviewed. admission HPI: Lien is a 61-year-old female with a past medical history significant for papillary thyroid cancer status post total thyroidectomy and 2001, dizziness who presented to [facility] ED on 07/26/2024 due to dysarthria, confusion, and headache which initially started on 07/24/2024. Patient was noted to be hypertensive on arrival with systolic blood pressure 160s but was otherwise stable. Labs including CBC, CMP, and UA were unremarkable. Chest x-ray, CT of the head and brain without contrast, and CTA of the head/neck were read as unremarkable. Prior to admission the patient was given 1 L normal saline and was ordered 1 g IV Tylenol. Patient was sitting in bed in no acute distress at the time of exam with her sitting bedside, history is obtained from both. They explained that the patient started to develop a frontal headache on 07/22/24. States that over the weekend the patient started to develop difficulty with word finding and getting the correct words out which her and friends noticed. Her states that these issues were mild but became more severe on 07/25/2024 with associated confusion. When asked, the patient confirms that she was aware that she was having difficulty getting her words out and states that she could not think of the correct words or speak correctly. No recent fever, chills, paresthesias, unilateral weakness, changes in vision, hearing, taste, smell, chest pain, shortness of breath, cough, abdominal pain, nausea/vomiting, dysuria/hematuria, melena, lower extremity swelling, recent insect bites or rash, and recent trauma. Patient states that her headache is currently a 5 out of 10, she and her feel as though her word finding difficulty has significantly improved but patient states that she still is experiencing the symptoms intermittently since arrival. Denies a previous history of stroke. When asked if she has ever experienced symptoms like this in the past they explained that approximately 10 years ago she experienced an ongoing headache while in [place] and was diagnosed with viral meningitis. They state that she was treated with steroids and significantly improved. When asked if this headache feels similar she states that it does not and when asked if she had similar word finding diffi culties with her history of meningitis she states that she does not. Denies new neck pain/stiffness. Has been using Tylenol and ibuprofen at home for her headache. Is a full code and would want her to make medical decisions for her if she cannot make them herself. Allergies Allergy/AdvReac Type Severity Reaction Status Date / Time bee venom protein (honey bee) Allergy Unknown HIVES, Verified 04/22/24 08:57 "funny feeling in throat Penicillins Allergy Unknown Verified 04/22/24 08:57 Home Medications Medication Instructions Recorded Confirmed Type hydrocortisone 2.5 % topical cream 1 appln MT DAILY PRN hemorrhoids 05/20/19 07/26/24 Rx with perineal applicator #30 grams (Anusol-HC) diclofenac sodium 1 % topical gel 2 gm topical BID PRN lliac crest 08/01/19 07/26/24 History bone pain, Left Knee Pain albuterol sulfate 90 mcg/actuation 1 inh inhalation QID PRN shortness 10/30/21 07/26/24 Rx aerosol inhaler of breath or wheezing #8.5 grams epinephrine 0.3 mg/0.3 mL 0.3 mg (0.3 mL) subcut ONCE PRN 02/05/23 07/26/24 Rx injection, auto-injector anaphylaxis #2 ea cholecalciferol (vitamin D3) 125 2,000 unit PO DAILY #30 caps 04/26/24 07/26/24 History mcg (5,000 unit) capsule Synthroid 175 mcg tablet 175 mcg PO DAILY #90 tabs 04/27/24 07/26/24 Rx (levothyroxine) Vitamin B 1 tab PO DAILY 07/26/24 07/26/24 History valacyclovir 1 gram tablet 2,000 mg PO BID PRN Other 07/26/24 07/26/24 History (Valtrex) Patient History Medical History (Updated 07/27/24 @ 10:07 by Gustavo Santamraia MD) Numbness of upper extremity Left hip pain Asymptomatic age-related postmenopausal state Abdominal pain SOBOE (shortness of breath on exertion) COVID-19 Bloating Benign neoplasm of thyroid Bee sting Allergic reaction Allergic reaction Surgical History Status post thyroidectomy History of thyroidectomy, total H/O oral surgery History of appendectomy Family History Unknown Breast cancer Heart disease Father Myocardial infarction Daughter Colorectal cancer Denies family history of Ovarian cancer Prostate cancer Social History Smoking Status: Never smoker Second Hand Exposure: No; Do You Dip or Chew Tobacco: No; Hx Alcohol Use: Yes Alcohol type: wine Alcohol Intake Frequency Comment: socially Hx Substance Use: No Preferred Language: Croatian Communication Ability: Effective Visual Impairment: No Limitations Hearing Ability: Normal Transportation Analyst Required: No Beliefs That Will Affect Care: None marital status: Current Living Situation: Spouse current occupational status: employed How many Children do You have: 2 Other Information That Helps Us Care for You: No Feels Safe at Home: Yes Safety Concerns: Feels Safe At This Time Childhood Exposure to Second-Hand Smoke: Yes Diet: low carbohydrate, low salt and regular caffeine: Yes Dental Care, Regularly: Yes Physical Activity Frequency: Daily Seatbelt Use: always Sunscreen Use: Yes Assistive Devices: None Exam (Neuro) Physical Exam: HEENT: normocephalic grossly Neuro: Mental: AOx4, fluent speech, normal comprehension, no apraxia, no L/R confusion, no neglect CN: PERRL, Full EOM, symmetric face, midline T/U/P, grossly full ROM neck Motor: No abnormal movements, normal tone, 5/5 t/o bilaterally Sens: intact to touch b/l grossly Coord: intact FNT b/l DTR: 2+ sym b/l Impression: 69 yo female with transient speech disturbance in setting of headache, suggestive of complicated migraine. mri brain negative. pt with prior similar events and responded well to steroid. Recommendations: ok for discharge. prednisone 60mg daily for 2 days and 40mg for 2 days and 20mg for 2 days dipesh no further work up needed from neurology stand point. Chart reviewed I have spent more than 50% educating patient about potential diagnosis and neurological evaluation and coordinating care with patient's treatment team. Total time spent (including chart review and coordination of care): 60 min (this includes chart review). Results & Data Vital Signs (Past 12 Hours) Vital Signs Temp Pulse Pulse Resp BP BP Pulse Ox 07/27/24 07:16 55 L 07/27/24 07:02 37.0 C 63 16 130/85 98 07/27/24 02:48 36.7 C 66 16 146/90 H 97 07/26/24 22:37 36.5 C 54 L 18 134/88 96 O2 Del Method 07/27/24 07:16 07/27/24 07:02 Room Air 07/27/24 02:48 Room Air 07/26/24 22:37 Room Air PG Care Time/CCT Total # of Minutes Spent Total Time Spent with Patient: Total time spent is greater than 50% in coordination of care (as documented) at patient's floor/unit and/or counseling patient: Coding Level of Care Code 69428 IN/OBS CONSULT LVL 4,60M Diagnoses Complicated migraine G43.109
[2024-07-27 10:46] VITALS: BP 124/82; PULSE 60; TEMP 97.9; O2SAT 94
[2024-07-27] MEDS: predniSONE 20 MG TAB PO STA (13:21)
--- NOTE | 2024-08-02 06:45 | Discharge Summary ---
Discharge Summary Date of Service July 27, 2024 Principal Dx & Hospital Course #1 = Principal Diagnosis (1) Word finding difficulty: Admit to med telemetry Currently stable nontoxic-appearing Presented to the ED with approximately 4 days of intermittent word finding difficulty with associated frontal headache Patient's neurologic exam currently nonfocal, no signs of infection, meningitis, encephalitis CT of the head and brain without contrast and CTA of the head and neck were read as unremarkable History and exam most consistent with possible TIA/CVA at this time Obtain MRI of the brain without contrast for further evaluation This was negative. -Appreciate input from Neurology. 69 yo female with transient speech disturbance in setting of headache, suggestive of complicated migraine. mri brain negative. pt with prior similar events and responded well to steroid. Recommendations: ok for discharge. prednisone 60mg daily for 2 days and 40mg for 2 days and 20mg for 2 days dipesh no further work up needed from neurology stand point. (2) Headache: Patient has been experiencing intermittent frontal headache since 07/22/2024 Denies a previous history of migraines or recurrent headaches Will monitor for improvement with 1 g IV Tylenol at time of admission and will follow-up MRI of the brain without contrast No signs of photophobia, nausea/vomiting to suggest migraine No signs of meningitis or encephalitis at this time MRI of the brain without contrast negative for CVA (3) Hypothyroidism, postablative: Continue levothyroxine Admission HPI Per Admitting Provider Lien is a 61-year-old female with a past medical history significant for papillary thyroid cancer status post total thyroidectomy and 2001, dizziness who presented to [facility] ED on 07/26/2024 due to dysarthria, confusion, and headache which initially started on 07/24/2024. Patient was noted to be hypertensive on arrival with systolic blood pressure 160s but was otherwise stable. Labs including CBC, CMP, and UA were unremarkable. Chest x- ray, CT of the head and brain without contrast, and CTA of the head/neck were read as unremarkable. Prior to admission the patient was given 1 L normal saline and was ordered 1 g IV Tylenol. Patient was sitting in bed in no acute distress at the time of exam with her sitting bedside, history is obtained from both. They explained that the patient started to develop a frontal headache on 07/22/24. States that over the weekend the patient started to develop difficulty with word finding and getting the correct words out which her and friends noticed. Her states that these issues were mild but became more severe on 07/25/2024 with associated confusion. When asked, the patient confirms that she was aware that she was having difficulty getting her words out and states that she could not think of the correct words or speak correctly. No recent fever, chills, paresthesias, unilateral weakness, changes in vision, hearing, taste, smell, chest pain, shortness of breath, cough, abdominal pain, nausea/vomiting, dysuria/hematuria, melena, lower extremity swelling, recent insect bites or rash, and recent trauma. Patient states that her headache is currently a 5 out of 10, she and her feel as though her word finding difficulty has significantly improved but patient states that she still is experiencing the symptoms intermittently since arrival. Denies a previous history of stroke. When asked if she has ever experienced symptoms like this in the past they explained that approximately 10 years ago she experienced an ongoing headache while in [place] and was diagnosed with viral meningitis. They state that she was treated with steroids and significantly improved. When asked if this headache feels similar she states that it does not and when asked if she had similar word finding difficulties with her history of meningitis she states that she does not. Denies new neck pain/stiffness. Has been using Tylenol and ibuprofen at home for her headache. Is a full code and would want her to make medical decisions for her if she cannot make them herself. Discharge Exam General: In no acute distress, stated age, well-nourished, good hygiene HEENT: Normocephalic, atraumatic Chest/Pulm: No respiratory distress, symmetrical chest expansion, clear breath sounds throughout Cardiac: RRR, no murmurs noted Abdomen: Negative for ascites and bruising, normoactive bowel sounds, soft, non- tender to palpation throughout Musculoskeletal: Symmetrical and without signs of acute trauma, upper and lower extremities with full ROM, no atrophy, spasticity, or flaccidity Extremities: Radial, dorsalis pedis, and posterior tibial pulses are intact and symmetrical, no edema noted in the BL LE's Discharge Plan Discharge Items Patient Disposition: Home - Self-Care Reason For Visit: STROKE-LIKE SYMPTOMS, HEADACHE Discharge Diagnosis: complex migraine Activity: Resume your previous activity Non-emergency contact: Primary Care Provider Call non-emergency contact if: you have any medication questions Follow-up/Referrals: Jose L Mendosa MD [Primary Care Provider] - 08/05/24 10:00 am Diet: Regular Addtl Attending Provider Instructions: Recommendations: prednisone 60mg daily for 2 days and 40mg for 2 days and 20mg for 2 days dipesh Followup with PCP in 1-2 weeks. Pending Studies at Discharge: No Stand-Alone Forms: My [facility], Smoking Cessation Medications and DC Order Prescriptions: New prednisone 20 mg tablet See Rx Instructions .ROUTE .COMPLEX Qty: 9 0RF Rx Instructions: By mouth, once daily: Take 3 tablets for 1 day then 2 tablets for 2 days then 1 tablet for 2 days Continued levothyroxine [Synthroid] 175 mcg tablet 175 mcg PO DAILY Qty: 90 3RF hydrocortisone [Anusol-HC] 2.5 % cream with perineal applicator 1 appln SC DAILY PRN (Reason: hemorrhoids) Qty: 30 0RF diclofenac sodium 1 % gel 2 gm topical BID PRN (Reason: lliac crest bone pain, Left Knee Pain) albuterol sulfate 90 mcg/actuation HFA aerosol inhaler 1 inh inhalation QID PRN (Reason: shortness of breath or wheezing) Qty: 8.5 4RF cholecalciferol (vitamin D3) 125 mcg (5,000 unit) capsule 2,000 unit PO DAILY Qty: 30 epinephrine 0.3 mg/0.3 mL auto-injector 0.3 mg subcut ONCE PRN (Reason: anaphylaxis) Qty: 2 0RF Vitamin B 1 tab PO DAILY Rx Instructions: otc unknown dose valacyclovir [Valtrex] 1 gram tablet 2,000 mg PO BID PRN (Reason: Other) No Action acetaminophen [Tylenol Extra Strength] 500 mg tablet 1,000 mg PO Q6H PRN Discharge Orders: Discharge Order (Routine); Ordered 07/27/24 Ordered By: Lukas Pearce Admission Data Admit Date/Time: 07/26/24 14:52 Attending Provider: Lukas Pearce Admit Provider: Seth Mckeon Primary Care Provider: Jose L Mendosa V. Other Providers: Gustavo Santamaria Other Interventions: Discharge Summary Assessment (RN) Last Done: 07/27/24 13:38 Hospital Stay Data Consultations 07/26/24 14:50 ED Decision to Admit Stat 07/27/24 08:09 Consult Neurology Routine Diagnostic Imagining Performed 07/26/24 11:39 CT angio head w con Stat CT angio neck with con Stat CT head/brain wo con Stat 07/26/24 15:08 MRI Brain [MR brain wo con] Stat Pending Results Patient Have Any Pending Studies at Discharge: No Discharge Instructions Given to Patient (Per Discharging Provider) Recommendations: prednisone 60mg daily for 2 days and 40mg for 2 days and 20mg for 2 days dipesh Followup with PCP in 1-2 weeks. Total Time Total Time Spent Total Time Spent (In Minutes): 32 Coding Level of Care Code 29782 INP/OBS DISCH >30 MIN Diagnoses Word finding difficulty R47.89 Headache R51.9 Hypothyroidism, postablative E89.0
== END 2024-07-27 15:53 | disposition home or self-care (01) ==
LOC: 2N 11:03 → ED 11:03 → SUATTDRO 14:52 → 2N 16:17